=== PATIENT | female | born 1950 | race Caucasian/White ===

== ENCOUNTER → 2021-01-14 | Day surgery (SDC) | payer MEDICARE ==
[2021-01-14 12:41] VITALS: BP 133/66
== END | disposition home or self-care (01) ==
LOC: SURG 12:12
PROVIDERS: ATTEND Anesthesiology
DX: G89.4 Chronic pain syndrome (principal); G60.0 Hereditary motor and sensory neuropathy; E78.00 Pure hypercholesterolemia, unspecified; M79.7 Fibromyalgia; F11.90 Opioid use, unspecified, uncomplicated; Z79.899 Other long term (current) drug therapy; Z88.6 Allergy status to analgesic agent; Z88.0 Allergy status to penicillin
CPT/HCPCS: 99214; G0463

== ENCOUNTER → 2022-02-05 | Outpatient (CLI) | payer MEDICARE ==
[2021-01-14 12:41] VITALS: BP 133/66
--- NOTE | 2022-02-07 03:52 | RAD ---
XR EXAM OF BILATERAL ANKLE 3V, XR BILAT FEET 3 VIEWS History: Bilateral foot and ankle pain. Comparison: Right toe radiographs 10/09/2021 Findings: Diffusely decreased osseous mineralization. No acute fracture or dislocation. Lateral right fifth met atarsal base stable fixation. The ankle mortise and talar dome are intact. Bilateral hammertoe deform ities. Degenerative changes greatest at the left first and second metatarsophalangeal joints. Small r ight Achilles insertion enthesophyte and left plantar calcaneal enthesophyte. Impression: 1. No acute osseous abnormality of bilateral feet. 2. Degenerative changes greatest at the left first and second metatarsal phalangeal joints. 3. Diffusely decreased osseous mineralization. Electronically signed by: Christiano Tobias MD (02/07/2022 3:49 AM) [facility]
== END ==
LOC: RAD 14:42
PROVIDERS: ATTEND Podiatrist
DX: M19.072 Primary osteoarthritis, left ankle and foot (principal); M20.42 Other hammer toe(s) (acquired), left foot; M20.41 Other hammer toe(s) (acquired), right foot; M25.371 Other instability, right ankle; M25.372 Other instability, left ankle
CPT/HCPCS: 73610-50; 73630-50